=== PATIENT | female | born 1995 | race Hispanic/Latino ===

== ENCOUNTER 2018-04-08 01:33 | Emergency (ER) | payer OTHER ==
[2018-04-08 01:44] VITALS: TEMP 98.6; O2SAT 98
--- NOTE | 2018-04-08 02:18 | ED PDOC ---
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 Patient was found in a car by EMS, but it is not clear who the car belongs to. Admits to drinking and is otherwise a poor historian. Denies medical complaints. PMD: none provided Past Medical History Reviewed: Historical Data, Nursing Documentation, Vital Signs Vital Signs: Last Vital Signs Temp 98.6 F 04/08/18 01:40 Pulse 102 H 04/08/18 01:40 Resp 16 04/08/18 01:40 BP 133/70 04/08/18 01:40 Pulse Ox 98 04/08/18 01:40 - Medical History PMH: No Chronic Diseases - Surgical History Surgical History: No Surg Hx - Family History Family History: States: Unknown Family Hx - Allergies Allergies/Adverse Reactions: Allergies Allergy/AdvReac Type Severity Reaction Status Date / Time No Known Allergies Allergy Verified 04/08/18 01:43 Review of Systems ROS Statement: Except As Marked, All Systems Reviewed And Found Negative Physical Exam - Reviewed Nursing Documentation Reviewed: Yes Vital Signs Reviewed: Yes - Physical Exam Appears: Positive for: No Acute Distress (appears comfortable) Head Exam: Positive for: ATRAUMATIC, NORMAL INSPECTION, NORMOCEPHALIC Skin: Positive for: Normal Color, Warm, Dry Eye Exam: Positive for: EOMI, PERRL ENT: Positive for: Normal ENT Inspection Neck: Positive for: Normal, Painless ROM, Supple Cardiovascular/Chest: Positive for: Regular Rate, Rhythm. Negative for: Murmur Neurologic/Psych: Positive for: Alert, Oriented (x 3), Gait (unsteady), Other ( slurred speech) - ECG O2 Sat by Pulse Oximetry: 98 (RA) Pulse Ox Interpretation: Normal - Progress Re-evaluation Time: 06:30 Condition: Re-examined, Improved Medical Decision Making Medical Decision Makin:10 Impression: alcohol intoxication Differential diagnoses include but are not limited to: substance abuse Initial Plan: --Alcohol serum --Monitored for clinical sobriety --Reevaluate Scribe Attestation: Documented by Jillian Caruso, acting as a scribe for Julio Victoria MD Provider Scribe Attestation: All medical record entries made by the Scribe were at my direction and personally dictated by me. I have reviewed the chart and agree that the record accurately reflects my personal performance of the history, physical exam, medical decision making, and the department course for this patient. I have also personally directed, reviewed, and agree with the discharge instructions and disposition. Disposition - Clinical Impression Clinical Impression: Alcohol abuse - Patient ED Disposition Is Patient to be Admitted: No - Disposition Disposition: Routine/Home Disposition Time: 06:30 Condition: GOOD Instructions: Alcohol Abuse and Alcoholism (DC)
[2018-04-08 06:45] VITALS: PULSE 86
[2018-04-08 06:47] VITALS: BP 122/78; RESP 16
== END 2018-04-08 06:30 | disposition home or self-care (01) ==
LOC: H.ER 01:33
DX: F10.129 Alcohol abuse with intoxication, unspecified (principal)
CPT/HCPCS: 82948; 99283; G0480